=== PATIENT | male | born 1995 | race Caucasian/White ===

== ENCOUNTER 2018-09-12 06:26 | Emergency (ER) | payer OTHER, SELFPAY ==
[2018-09-12] MEDS ORDERED: Lidocaine 1% w/Epinephrine 1:100K 20 ML VIAL ONE (08:20)
[2018-09-12] MEDS ORDERED: Adacel (T-DAP) 0.5 ML VIAL ONE (09:02)
== END 2018-09-12 09:25 | disposition home or self-care (01) ==
LOC: ERS 06:26
DX: S61.412A Laceration without foreign body of left hand, initial encounter (principal); V49.9XXA Car occupant (driver) (passenger) injured in unspecified traffic accident, initial encounter
CPT/HCPCS: 12001; 90471; 90715; J2001